=== PATIENT | female | born 1980 | race Caucasian/White ===

== ENCOUNTER 2025-04-30 20:31 | Emergency (ER) | payer OTHER, SELFPAY ==
[2025-04-30 20:33] VITALS: BP 116/58
[2025-04-30 21:19] LABS: Hematocrit 41.2 % (37.0-47.0); Hemoglobin 14.3 g/dL (12.0-16.0); Mean Corp Hgb Conc. 34.7 g/dL (33.0-37.0); Mean Corpuscular Volume 86.9 fL (81.0-99.0); Nucleated Red Blood Cells % 0 %; Platelet Count 343 10^3/uL (130-400); Red Cell Dist. Width 13.4 % (11.5-14.5)
[2025-04-30 21:30] LABS: HCG, Serum Qualitative Screen Negative
[2025-04-30 21:35] LABS: ALT (SGPT) 26 U/L (0-35); AST (SGOT) 19 U/L (14-36); Albumin 4.2 g/dl (3.5-5.0); Alkaline Phosphatase 46 U/L (38-126); Blood Urea Nitrogen 14 mg/dl (7-17); Calcium 9.6 mg/dl (8.4-10.2); Carbon Dioxide 22 mmol/L (22-30); Chloride 108 mmol/L (98-107); Glucose 108 mg/dl (70-99); Lipase 149 U/L (23-300); Potassium 4.7 mmol/L (3.5-5.1); Sodium 136 mmol/L (135-145); Total Protein 7.0 g/dl (6.3-8.2); eGFR > 60.00
--- NOTE | 2025-04-30 22:02 | ED.GENMED ---
History of Present Illness
General
Chief Complaint: Swelling
Time Seen by Provider: 04/30/25 21:45
History of Present Illness
History of Present Illness:
45-year-old female presenting with right lower quadrant abdominal pain starting this afternoon. Patient states that she has sunburn, went to urgent care, was given prednisone. Patient states that she took prednisone and immediately afterwards had
left upper arm swelling. Patient states that soon after she started developing right lower quadrant abdominal pain. Patient reports nausea which feels similar to previous nausea which she is contributed to being on Wegovy. Patient denies
vomiting, diarrhea, dysuria or hematuria. No fevers.
Past History
Past History
ED Past Medical History: GERD (reflux with buring in chest typical for her during these episodes of vomiting.), Other (chronic right foot pain past 5 yrs post surgery: takes Oxycodone, did not take it today), Other (Chronic intermittent abdominal
pain with vomiting for 'a couple of years' States she's been evaluated 'at least 10 times' in the past year, lasts at [place] 05/21/15) and Other (Bipolar, prescribed Trazadone and Seroquel which she stopped about 6 months ago because she didn't
like the way they made her feel. States her doctor is aware.); Negative Asthma, HTN, Hypercholesterolemia or NIDDM
ED Past Surgical History: Cholecystectomy, , Orthopedic (R foot fusion) and Other (Imbilical hernia repair)
Social History
Tobacco: Smoker
Alcohol: None
Personal: Single
Living: with family
Phy Exam
Physical Exam
Physical Exam:
General: Alert, no acute distress
Head: NCAT
Eyes: clear conjunctiva
Neck: supple
Cardiac: regular rate and rhythm, no murmur
Lungs: clear to auscultation bilaterally. No wheezes, rales, or rhonchi. Speaking full unlabored sentences. No respiratory distress.
Abdomen: soft, nondistended right lower quadrant abdominal tenderness. No rebound or guarding.
MSK: no lower extremity edema bilaterally. No deformity. Left upper arm edema compared to right. 2+ left radial pulse
Skin: warm, dry. Sunburn upper back with blisters
Neuro: Alert and oriented x3. no focal deficits
Scores
Heart Failure Risk
Heart Failure Risk Score: Not Applicable
Course
Orders/Labs/Results
Orders:
Orders
04/30/25 20:36
Test Result ONCE
04/30/25 20:59
Complete Blood Count/With Diff Urgent
Comprehensive Metabolic Panel Urgent
HCG, Serum Qualitative Screen Urgent
Lipase Urgent
04/30/25 22:02
Ketorolac [Toradol] 15 mg IV NOW STA
Ondansetron Injectable [Zofran] 4 mg IV NOW STA
US Periph Venous UPPER Ext LT Urgent
Comment:
Reason For Exam: left upper arm swelling
04/30/25 22:15
UA Reflex to Culture [Urinalysis Reflex To Culture] Urgent
Date Specimen was Collected: 04/30/25
Time Specimen was Collected: 22:07
Urine Microscopic Reflex Cult Urgent
Urine Culture Urgent
STARLA Source: U
Specimen Description:
Date Specimen was Collected: 04/30/25
Time Specimen was Collected: 22:07
04/30/25 23:09
Diphenhydramine [Benadryl] 50 mg IV NOW STA
Hydrocortisone Sod Succinate [Solu-Cortef] 200 mg IV NOW STA
05/01/25
CT Abd/pelvis W Iv Cont Urgent
Reason For Exam: rlq tenderness
05/01/25 02:10
Dicyclomine [Bentyl] 20 mg PO NOW STA
Abnormal Lab Results
04/30/25 04/30/25
20:59 22:15
WBC 12.2 H 10^3/uL
(4.8-10.8)
Absolute Neuts (auto) 9.4 H 10^3/uL
(1.4-6.5)
Neutrophils % 76.8 H %
(42.2-75.2)
Lymphocytes % 17.0 L %
(20.5-51.1)
Chloride 108 H mmol/L
(98-107)
Glucose 108 H mg/dl
(70-99)
Urine Ketones 1+ A
(Negative)
Ur Occult Blood Reflex 1+ A
(Negative)
Leukocyte Esterase Rfl 1+ A
(Negative)
Urine Bacteria (Reflex) Many A
(Negative)
Urine Albumin (Reflex) 1+ A
(Neg - Trace)
04/30/25 20:59
04/30/25 20:59
Vital Signs
Initial and Last Documented VS:
Initial Vital Signs
Temp Pulse Resp BP Pulse Ox
98.7 F 89 16 116/58 100
04/30/25 20:33 04/30/25 20:33 04/30/25 20:33 04/30/25 20:33 04/30/25 20:33
Last Documented Vital Signs
Temp Pulse Resp BP Pulse Ox
98.0 F 89 20 119/90 100
05/01/25 02:02 04/30/25 20:33 05/01/25 02:02 05/01/25 02:02 04/30/25 22:04
MDM/Problems Addressed
Differential Diagnosis Includes:
DVT, appendicitis, kidney stone, UTI, medication side effect
MDM/Problems Addressed:
Results reviewed. Significant for WBC 12.2, electrolytes/creatinine within normal limits. UA likely contaminated given large amount of squamous cells, low suspicion for UTI. Left upper extremity vascular ultrasound shows no DVT. CT abdomen
pelvis shows malrotated IUD with myometrial penetration. No bowel obstruction or inflammation. Appendix is normal. No hydronephrosis or nephrolithiasis. No free air or free fluid. Prior cholecystectomy.
Discussed results with patient at bedside who states that she had her IUD placed when she had her 4 years ago. Patient states that her SKIVER HAND is never been able to visualize it during routine checks.
Discussed with SKIVER HAND who states that more than likely malpositioned soon after placement as uterus was involuting. Recommended outpatient follow-up for IUD removal
Discussed results with patient at bedside. Stable for discharge home
*Pulse Oximetry
SaO2: 100
Oxygen Mode of Delivery: Room air
Patient hypoxic: no
*Critical Care Note
Total Time (30-74mins, 75-104mins- exclusive of procedures): Not Applicable
ED Attending Note
-
Portions of this chart may have been created with voice recognition software.� Occasional wrong word or��sound alike� substitutions may have occurred due to the inherent limitations of voice recognition software.
Discharge Plan
Departure
Patient Disposition: Home (Routine Discharge)
Date of Disposition: 05/01/25
Time of Disposition: 02:10
Patient with high blood pressure during this ER visit?: No
Discharge Problem:
Abdominal pain, right lower quadrant, Left arm swelling, Sunburn
Instructions: Abdominal pain in adults - ED discharge instructions
Prescriptions:
No Action
omeprazole 10 MG capsule,delayed release(DR/EC)
10 mg PO DAILY PRN (Reason: gerd)
hydrocodone-acetaminophen 1 TABLET tablet
1 tab PO Q4HPRN PRN (Reason: severe pain) Qty: 20 0RF
Zofran ODT (Orally Disintegrating)
1 tab PO Q6 PRN (Reason: NAUSEA)
hydrocodone-acetaminophen 1 TABLET tablet
1 tab PO Q4HPRN PRN (Reason: pain) Qty: 8 0RF
Referrals:
Gunnar Sanchez MD [Family Provider]
Activity Restrictions/Additional Instructions:
Follow-up with gynecology this week concerning malrotated IUD with myometrial penetration. Follow-up with primary care doctor in 1 to 2 days
Take Tylenol 975 mg every 6 hours and/or ibuprofen 800 mg every 8 hours with food as needed for pain
Return to the emergency department for hard/distended abdomen, fever or new/worsening symptoms
Interventions
Interventions:
*Risk Screen - Suicide Last Done: 04/30/25 20:35
*General Assessment Last Done: 04/30/25 22:53
*Neglect/Abuse Screening Last Done: 04/30/25 20:35
*ED- Fall Risk Assessment Last Done: 05/01/25 01:50
*ED COVID-19 Vaccine History Last Done: 04/30/25 22:53
ED- Cardiac Assessment Last Done: 04/30/25 22:53
ED- Pulmonary Assessment Last Done: 04/30/25 22:53
ED-Skin Assessment Last Done: 05/01/25 00:07
Discharge Date and Time
Print Language: TUNISIAN
[2025-04-30] MEDS: TORADOL 15 MG IV (22:10)
[2025-04-30] MEDS: ZOFRAN 4 MG IV (22:11)
[2025-04-30 22:21] LABS: Urine Character Clear (Clear)
[2025-04-30 22:26] LABS: Urine Squamous Cell >30 /LPF (Few)
[2025-04-30 22:31] LABS: Urine Red Blood Cell 0-2 /HPF (0-2); Urine White Cell 0-2 /HPF (0-5)
[2025-04-30] MEDS: SOLU-CORTEF 200 MG IV (23:17)
[2025-04-30] MEDS: BENADRYL 50 MG IV (23:17)
[2025-05-01 02:02] VITALS: BP 119/90
[2025-05-01] MEDS: BENTYL 20 MG PO (02:15)
== END 2025-05-01 02:40 | disposition home or self-care (01) ==
LOC: EMR 20:31
PROVIDERS: Student in an Organized Health Care Education/Training Program; EMERGENCY PHYSICIAN Emergency Medicine; FAMILY PHYSICIAN Family Medicine
DX: R10.31 Right lower quadrant pain (principal); R11.0 Nausea; R60.0 Localized edema; L55.9 Sunburn, unspecified; M79.671 Pain in right foot; K21.9 Gastro-esophageal reflux disease without esophagitis; G89.29 Other chronic pain; F17.200 Nicotine dependence, unspecified, uncomplicated; Z90.49 Acquired absence of other specified parts of digestive tract; Z97.5 Presence of (intrauterine) contraceptive device; Z88.0 Allergy status to penicillin; Z88.8 Allergy status to other drugs, medicaments and biological substances; Z88.1 Allergy status to other antibiotic agents; Z91.041 Radiographic dye allergy status
CPT/HCPCS: 99284; 96374; 96375 ×3; 74177; 80053; 81003; 81015; 83690; 84703; 85025; 87086; 93971; Q9967

== ENCOUNTER 2025-05-19 06:43 | Emergency (ER) | payer OTHER, SELFPAY ==
[2025-05-19 06:47] VITALS: BP 135/99
[2025-05-19 07:28] LABS: Hematocrit 46.1 % (37.0-47.0); Hemoglobin 15.7 g/dL (12.0-16.0); Mean Corp Hgb Conc. 34.1 g/dL (33.0-37.0); Mean Corpuscular Volume 87.0 fL (81.0-99.0); Nucleated Red Blood Cells % 0 %; Platelet Count 397 10^3/uL (130-400); Red Cell Dist. Width 13.8 % (11.5-14.5)
[2025-05-19 07:49] LABS: HCG, Serum Qualitative Screen Negative
[2025-05-19 07:54] LABS: AST (SGOT) 28 U/L (14-36); Albumin 5.0 g/dl (3.5-5.0); Alkaline Phosphatase 47 U/L (38-126); Blood Urea Nitrogen 23 mg/dl (7-17); Calcium 10.3 mg/dl (8.4-10.2); Carbon Dioxide 21 mmol/L (22-30); Chloride 108 mmol/L (98-107); Glucose 129 mg/dl (70-99); Lipase 121 U/L (23-300); Potassium 3.7 mmol/L (3.5-5.1); Sodium 142 mmol/L (135-145); Total Protein 8.3 g/dl (6.3-8.2); eGFR > 60.00
[2025-05-19] MEDS: BENADRYL 50 MG IV (07:54)
[2025-05-19] MEDS: COMPAZINE 10 MG IV (07:54)
[2025-05-19] MEDS: NSS 1000 IV (07:55)
[2025-05-19 08:13] LABS: ALT (SGPT) 44 U/L (0-35)
--- NOTE | 2025-05-19 11:00 | ED.GENMED ---
History of Present Illness
General
Chief Complaint: Abdominal Symptoms
Source: patient
Exam Limitations: none
Time Seen by Provider: 05/19/25 07:30
Nursing documentation reviewed up to this point in time: agreed with
History of Present Illness
History of Present Illness:
45 yo female with h/o nausea and vomiting prompting her to come to ER. presents with vomiting episodes that have persisted for two days. These episodes started on Tuesday. The patient has been experiencing similar episodes for approximately eight
months since starting Wygovy. She had 1 episode of diarrhea this morning. She does use cannibis every night. The patient is not aware that her symptoms could be due to her cannabis use. She recalls previous treatments with intravenous fluids,
diphenhydramine, and prochlorperazine, which provided relief. The treatment plan for today involves the same regimen. The patient notes that she is currently using the medication semaglutide (Wegovy), which she feels contributes to her nausea. The
patient is under the care of a furniture salesperson who has suggested the possibility of adjusting the semaglutide dose. Her next PCP visit is 06/18 to discuss lowering the dose.
Past History
Past History
ED Past Medical History: GERD (reflux with buring in chest typical for her during these episodes of vomiting.), Other (chronic right foot pain past 5 yrs post surgery: takes Oxycodone, did not take it today), Other (Chronic intermittent abdominal
pain with vomiting for 'a couple of years' States she's been evaluated 'at least 10 times' in the past year, lasts at [place] 05/21/15) and Other (Bipolar, prescribed Trazadone and Seroquel which she stopped about 6 months ago because she didn't
like the way they made her feel. States her doctor is aware.); Negative Asthma, HTN, Hypercholesterolemia or NIDDM
ED Past Surgical History: Cholecystectomy, , Orthopedic (R foot fusion) and Other (Imbilical hernia repair)
Social History
Tobacco: Former smoker
Alcohol: None
Drug: Marijuana
Personal: Single
Living: with family
Review of Systems
Review of Systems
Allergies reviewed?: Yes
All Other Systems: ROS reviewed and negative except as documented in HPI and ROS
Constitutional: Denies fever
Respiratory: Denies trouble breathing
Cardiac: Denies chest pain
ABD/GI: Reports nausea, vomiting and diarrhea (Had 1 episode of diarrhea this morning)
Phy Exam
Physical Exam
Physical Exam:
GENERAL: Mild distress due to currently retching. A&Ox3.
CONSTITUTIONAL: Afebrile.
EYES: clear, conjunctivae normal
ENMT: moist mucus membranes, Pharynx nl
RESPIRATORY: Regular respirations, nonlabored, lungs clear.
CARDIOVASCULAR: Regular rate and rhythm, no murmurs, no rubs.
GI: Soft, obese, nontender, normal BS
MUSCULOSKELETAL: Moves with ease. Well perfused.
SKIN: Warm, dry, pink
PSYCH: Anxious mood and affect. Well kept, interactive and appropriate
NEUROLOGIC: Awake, alert and oriented. No focal neurological deficits
Course
Orders/Labs/Results
Orders:
Orders
05/19/25 06:51
Test Result ONCE
05/19/25 07:04
ECG [Electrocardiogram (*1)] Urgent
Reason for Study: Syncope
EKG- Treatment ONCE
05/19/25 07:19
Complete Blood Count/With Diff Urgent
Comprehensive Metabolic Panel Urgent
HCG, Serum Qualitative Screen Urgent
Lipase Urgent
05/19/25 07:32
0.9% Sodium Chloride 1000 ml [Nss] 1,000 ml IV BOLUS
Diphenhydramine [Benadryl] 50 mg IV NOW STA
Prochlorperazine [Compazine] 10 mg IV NOW STA
05/19/25 07:38
Add On - Microbiology Urgent
Tests Added?: urinalysis reflex to culture
05/19/25 10:56
Ondansetron Injectable [Zofran] 4 mg IV NOW STA
Abnormal Lab Results
05/19/25
07:19
WBC 11.4 H 10^3/uL
(4.8-10.8)
Absolute Neuts (auto) 8.3 H 10^3/uL
(1.4-6.5)
Absolute Monos (auto) 0.9 H 10^3/uL
(0.1-0.6)
Lymphocytes % 19.0 L %
(20.5-51.1)
Chloride 108 H mmol/L
(98-107)
Carbon Dioxide 21 L mmol/L
(22-30)
BUN 23 H mg/dl
(7-17)
Glucose 129 H mg/dl
(70-99)
Calcium 10.3 H mg/dl
(8.4-10.2)
ALT 44 H U/L
(0-35)
Total Protein 8.3 H g/dl
(6.3-8.2)
05/19/25 07:19
05/19/25 07:19
Vital Signs
Initial and Last Documented VS:
Initial Vital Signs
Pulse Resp BP Pulse Ox
96 22 135/99 98
05/19/25 06:47 05/19/25 06:47 05/19/25 06:47 05/19/25 06:47
Last Documented Vital Signs
Pulse Resp BP Pulse Ox
96 22 135/99 98
05/19/25 06:47 05/19/25 06:47 05/19/25 06:47 05/19/25 11:00
MDM/Problems Addressed
Differential Diagnosis Includes:
1. Cannabis hyperemesis syndrome
2. Gastroesophageal reflux disease
3. Peptic ulcer disease
4. Cholecystitis
5. Pancreatitis
6. Gastroenteritis
7. Gastroparesis
8. Cyclic vomiting syndrome
9. Medication-induced nausea (related to semaglutide)
MDM/Problems Addressed:
45 yo female with h/o nausea and vomiting prompting her to come to ER. presents with vomiting episodes that have persisted for two days. These episodes started on Tuesday. The patient has been experiencing similar episodes for approximately eight
months since starting Wygovy. She had 1 episode of diarrhea this morning. She does use cannibis every night. The patient is not aware that her symptoms could be due to her cannabis use. She states she has not had an episode like this of nausea
and vomiting for 'years.' She recalls previous treatments with intravenous fluids, diphenhydramine, and prochlorperazine, which provided relief. The treatment plan for today involves the same regimen. The patient notes that she is currently using
the medication semaglutide (Wegovy), which she feels contributes to her nausea. The patient is under the care of a furniture salesperson who has suggested the possibility of adjusting the semaglutide dose. Her next PCP visit is 06/18 to discuss lowering
the dose.
EKG: NSR
CBC: No clinically significant abnormality
CMP: No clinically significant abnormality
Lipase normal
hCG negative
11:00 a.m.
Pt feeling better, feels comfortable going home. No further vomiting. States her abdominal pain was from vomiting. Tolerating ice chips.
*Pulse Oximetry
SaO2: 98
Oxygen Mode of Delivery: Room air
Patient hypoxic: not evaluated
*EKG
EKG Intrepretation Date: 05/19/25
Interpretation: normal
Heart Rate: 85
Rate: normal
Rhythm: sinus
[place]: normal axis
Interval: normal interval
QRS Pattern: normal QRS
Ischemia: no ischemia
*Critical Care Note
Total Time (30-74mins, 75-104mins- exclusive of procedures): Not Applicable
ED Attending Note
-
Portions of this chart may have been created with voice recognition software.� Occasional wrong word or��sound alike� substitutions may have occurred due to the inherent limitations of voice recognition software.
Discharge Plan
Departure
Patient Disposition: Home (Routine Discharge)
Date of Disposition: 05/19/25
Time of Disposition: 11:21
Patient with high blood pressure during this ER visit?: No
Condition: Good
Discharge Problem:
Nausea & vomiting
Instructions: Nausea and Vomiting, Adult (DC), Abdominal Pain
Prescriptions:
No Action
omeprazole 10 MG capsule,delayed release(DR/EC)
10 mg PO DAILY PRN (Reason: gerd)
hydrocodone-acetaminophen 1 TABLET tablet
1 tab PO Q4HPRN PRN (Reason: severe pain) Qty: 20 0RF
Zofran ODT (Orally Disintegrating)
1 tab PO Q6 PRN (Reason: NAUSEA)
hydrocodone-acetaminophen 1 TABLET tablet
1 tab PO Q4HPRN PRN (Reason: pain) Qty: 8 0RF
Referrals:
Gunnar Sanchez MD [Family Provider] - As needed
Stand Alone Forms: Return to Work
Activity Restrictions/Additional Instructions:
As we discussed, you may continue your Zofran as needed.
Drink plenty of fluids.
Interventions
Interventions:
*Risk Screen - Suicide Last Done: 05/19/25 06:47
*General Assessment Last Done: 05/19/25 06:47
*Neglect/Abuse Screening Last Done: 05/19/25 06:47
*ED- Fall Risk Assessment Last Done: 05/19/25 11:34
*ED COVID-19 Vaccine History Last Done: 05/19/25 11:34
*Nursing Disposition Last Done: 05/19/25 11:34
GY-[facility]zo[facility]-Ambfkwauwv Assessment Last Done: 05/19/25 08:13
Discharge Date and Time
Discharge Date/Time: 05/19/25 11:34
Print Language: PERSIAN
[2025-05-19] MEDS: ZOFRAN 4 MG IV (11:10)
== END 2025-05-19 11:34 | disposition home or self-care (01) ==
LOC: EMR 06:43
PROVIDERS: EMERGENCY PHYSICIAN Student in an Organized Health Care Education/Training Program; FAMILY PHYSICIAN Family Medicine
DX: R11.2 Nausea with vomiting, unspecified (principal); Z87.891 Personal history of nicotine dependence; Z90.49 Acquired absence of other specified parts of digestive tract
CPT/HCPCS: 99284; 96374; 96375; 96361; 80053; 83690; 84703; 85025; 93005